=== PATIENT | male | born 1980 | race Two or more races ===

== ENCOUNTER 2024-10-03 06:28 | Day surgery (SDC) | payer SELFPAY ==
[2024-09-26 11:24] LABS: Hematocrit 44.9 % (39.0-52.0); Hemoglobin 15.1 g/dL (13.0-18.0); Mean Corp Hgb Conc. 33.6 g/dL (33.0-37.0); Mean Corpuscular Hgb 29.4 pg (27.0-31.0); Mean Corpuscular Volume 87.5 fL (80.0-94.0); Mean Platelet Volume 10.2 fL (7.4-10.4); Platelet Count 236 10^3/uL (130-400); Red Blood Cell Count 5.13 10^6/uL (4.70-6.10); Red Cell Dist. Width 13.9 % (11.5-14.5)
[2024-09-26 11:33] LABS: PT 12.5 Sec (11.4-14.6)
[2024-09-26 12:16] LABS: Blood Urea Nitrogen 24 mg/dl (9-20); Calcium 9.4 mg/dl (8.4-10.2); Carbon Dioxide 27 mmol/L (22-30); Chloride 106 mmol/L (98-107); Glucose 114 mg/dl (70-99); Potassium 4.9 mmol/L (3.5-5.1); Sodium 142 mmol/L (135-145); eGFR > 60.00
[2024-09-26 14:05] VITALS: BMI 28.5
[2024-10-03] VITALS (14 sets, daily range): BP systolic 120–169; BP diastolic 78–120; BMI 28.5
--- NOTE | 2024-10-03 16:03 | OR.RPT ---
Operative Report
Operative Report
Primary Surgeon:� Yamileth Herrera
Pre-op Diagnosis:� Dental Caries
Post-op Diagnosis: � Dental Caries
Anesthesia Type:� General
Procedure Performed:� Extraction of teeth #2, 3, 4, 5, 6, 7, 8, 9, 10, 11, 12, 13, 14, 15, 19, 20, 21, 28, 29 and alveoloplasty of the maxilla
The patient was prepped and draped in a standard sterile fashion. 5.1 cc of 2%lidocaine with 1:100,000 epinephrine was administered as local infiltration. Throat pack placed. A periosteal elevator was used to separate the tissue from teeth #19, 20,
21, 28, 29. They were elevated and extracted. Sockets curetted. Irrigated with NSS. Gel foam packed. Closed with 3-0 CGS. In the maxilla, a #15 blade was used to make a sulcular incision along all teeth #2-15 and full thickness mucoperiosteal flap
was elevated. Teeth #2, 4, 5, 6, 7, 8, 9, 10, 11, 12, 13, 14, 15 were elevated and extracted with forceps. Tooth #3 was sectioned and MB root troughed, elevated, and extracted with forceps. Alveoloplasty was performed with rongeurs and bone file.
Irrigated with NSS. Gel foam packed into all sites. Closed with 3-0 CGS in running and interrupted fashion. 7 cc of 1% lidocaine was injected as local infiltration. At the end of the case, the oral cavity was inspected and irrigated and found to be
free of foreign debris. The throat pack was removed and care of the patient was returned to the Department of Anesthesia. The patient was transferred to the Post-Anesthesia Care Unit. Immediate denture was delivered in PACU.
Specimen / Cultures:� None
Estimated Blood Loss:� 10cc
Complications:� None
[2024-10-03] MEDS: SUBLIMAZE 50 MCG IV ×2 (16:06→16:16)
[2024-10-03] MEDS: DEMEROL 12.5 MG IV ×2 (16:06→16:16)
[2024-10-03] MEDS: ZOFRAN 4 MG IV (16:06)
[2024-10-03] MEDS: ROXICODONE 10 MG PO (16:55)
== END 2024-10-03 17:30 | disposition home or self-care (01) ==
LOC: SDS 06:28
PROVIDERS: ATTENDING PHYSICIAN Dentist Oral and Maxillofacial Surgery
DX: K02.9 Dental caries, unspecified (principal)
CPT/HCPCS: 41874; D7310 ×19; 80048; 85027; 85610; 85730